=== PATIENT | male | born 1965 | race Caucasian/White ===

== ENCOUNTER 2022-01-12 15:10 | Emergency (ER) | payer OTHER, SELFPAY ==
--- NOTE | 2022-01-12 15:15 | ED.URI ---
HPI - URI/Sore Throat General Chief Complaint: Upper Respiratory Infection Stated Complaint: sore throat Time Seen by Provider: 01/12/22 15:35 Source: patient Mode of arrival: ambulatory Limitations: no limitations History of Present Illness HPI Narrative: Mr. Neal is a 56-year-old male patient presenting to the clinic today with complaints of sore throat and nasal congestion. He reports that this has been going on for approximately 2 weeks. He has taken 2 COVID test today and both of them were negative. He denies any fever or chills. Reports that nasal drainage is going in the back of his throat and his throat pain is worse in the morning. States that the pain was initially just on the right side of his throat but now it is both sides. Also reports he has some bilateral ear discomfort. Related Data Home Medications Medication Instructions Recorded Confirmed aspirin 325 mg tablet 325 mg PO DAILY 05/26/19 03/18/21 Allergies Allergy/AdvReac Type Severity Reaction Status Date / Time lisinopril Allergy Unknown Cough Verified 09/05/21 12:03 Penicillins Allergy Unknown Unknown Verified 09/05/21 12:03 Review of Systems Review of Systems: Pertinent positives per HPI. Patient denies any fever, chills, rash, headache, visual changes, dizziness, cough, shortness of breath, chest pain, palpitations, nausea, vomiting, diarrhea, constipation, abdominal pain, or any urinary issues. [facility] Past Medical History Medical History Cervical disc disorder at C6-C7 level with myelopathy COVID-19 virus infection Surgical History Surgical History S/P cervical disc replacement (~03/2019) Family History Family History Father Family history of cardiovascular disease, Onset Age: 78 Malignant neoplasm of prostate Family history of coronary artery disease Social History Social History (Updated 09/05/21 @ 12:03 by JESUS Frances) Smoking status: Former smoker Alcohol intake: current Comments At the time of my signature, I reviewed and agree with the nursing past medical, surgical, social, and family history. There is no relevant family history pertinent to the patient complaint. Exam Narrative: General: Well-developed, obese, in no apparent distress Head: Normocephalic, atraumatic Eyes: Pupils equally round and reactive to light bilaterally, EOM intact, sclera and conjunctive clear, no discharge, lids normal Ears: TMs intact and clear, ear canals clear, no drainage, grossly hearing normal. Nose: Nares patent, clear nasal discharge, mild inflammation, no sinus tenderness. Mouth: Oropharynx without lesions or masses, good dentition, MMM. Oropharynx mildly red postnasal drip Neck: Supple, trachea midline, no enlargement of anterior or posterior cervical nodes, no thyroid masses or goiter palpable. Cardio: Regular rate and rhythm, s1 and s2 normal, no murmur appreciated. Resp: Clear to auscultation bilaterally anteriorly and posteriorly, no rhonchi, rales, wheezing or rubs Course Course Emergency Course: Portions of this record may have been created with voice recognition software. Level of Care: Express Care Visit Vital Signs Vital signs: Vital signs reviewed MDM - URI/Sore Throat MDM Narrative Medical decision making narrative: At the time of visit patient is resting comfortably on the exam table. Strep screen was obtained and was negative in the clinic for strep. I suspect the patient has nasal congestion with postnasal drip and eustachian tube dysfunction. I will send in a prescription for some prednisone to help with the inflammation and dry up the congestion. Supportive measures were discussed with the patient he voiced understanding of discharge instructions and agrees to treatment plan. Differential Diagnosis Diffe
[2022-01-12 15:20] VITALS: BP 169/88; PULSE 74; RESP 16; TEMP 35.8; O2SAT 99
== END 2022-01-12 15:56 | disposition home or self-care (01) ==
PROVIDERS: Emergency Provider Nurse Practitioner Family; PCP Family Medicine
DX: J02.9 Acute pharyngitis, unspecified (principal); R09.82 Postnasal drip; H69.90 Unspecified Eustachian tube disorder, unspecified ear; Z87.891 Personal history of nicotine dependence; M50.023 Cervical disc disorder at C6-C7 level with myelopathy; Z86.16 Personal history of COVID-19
CPT/HCPCS: 87081; 87880; 99213; G0463

== ENCOUNTER 2023-12-21 19:26 | Emergency (ER) | payer OTHER, SELFPAY ==
--- NOTE | ~2023-12-21 | XR_ITS ---
EXAMINATION: XR shoulder LT min 2V DATE: 12/21/2023 19:43 INDICATION: Left shoulder dislocation. TECHNIQUE: 4 views of left shoulder were obtained. COMPARISON: Left humerus radiograph 07/26/2004 FINDINGS: There is a reverse [id number] total left shoulder arthroplasty in near-anatomic alignm ent. No fracture. No periprosthetic lucency to suggest loosening or infection. There is moderate oste oarthritis of acromioclavicular joint. IMPRESSION: 1. Total left shoulder arthroplasty in near-anatomic alignment. Reviewed, dictated and finalized at location E.
--- NOTE | 2023-12-21 19:36 | ED.UPPEXIN ---
HPI - Extremity Injury (Upper) General Chief Complaint: Extremity Injury, Upper Stated Complaint: Disloated Shoulder Source: patient Mode of arrival: ambulatory Limitations: no limitations History of Present Illness HPI narrative: [age] year old male presented for complaint of possible dislocation to the left shoulder today which he was able to 'get it back into place himself.' Pt had reverse total shoulder surgery 6 weeks ago. Patient states he is certain it was dislocated earlier today when he reached out with the left arm to move his grandchild, and felt a pop then shooting pain and decreased range of motion; he was able to reduce it by doing a pendulum exercise and felt it pop into place. Endorses he is back to baseline ROM since then. Denies pain at rest, rates pain 3/10 with movement. States he was advised by his chiropractor to have an xray. Denies temperature change, color change, numbness, tingling or weakness of the extremity presently. Scheduled with surgeon in 3 days. Related Data Home Medications Medication Instructions Recorded Confirmed aspirin 325 mg tablet 325 mg PO DAILY 05/26/19 12/21/23 multivitamin 1 tablet PO DAILY 10/13/22 12/21/23 Allergies Allergy/AdvReac Type Severity Reaction Status Date / Time lisinopril Allergy Unknown Cough Verified 12/21/23 19:56 Penicillins Allergy Unknown Unknown Verified 12/21/23 19:56 Review of Systems Review of Systems: CONSTITUTIONAL: Denies body aches, fever, chills ENT: Denies rhinorrhea, congestion CARDIOVASCULAR: Denies chest pain, palpitations, or edema. RESPIRATORY: Denies cough or dyspnea. SKIN: Denies rash, itching, or wounds. MUSCULOSKELETAL: reports left shoulder pain Denies back pain, or myalgia. NEUROLOGIC: Denies headache, numbness, tingling, or weakness. All systems reviewed & are unremarkable except as noted in HPI and below PMFSH Past Medical History Medical History Cervical disc disorder at C6-C7 level with myelopathy COVID-19 virus infection Torn rotator cuff Left 10/2022 Surgical History Surgical History Knee joint replacement status S/P cervical disc replacement (~03/2019) Family History Family History Father Family history of cardiovascular disease, Onset Age: 78 Malignant neoplasm of prostate Family history of coronary artery disease Social History Social History Smoking status: Former smoker Alcohol intake: current Lack of Transportation: No Lack of Food: Never True Current Housing: I Have Housing Concerned About Future Housing: No Difficulty Paying Gas/Electric Bills: No Difficulty Paying for Meds: No Currently Unemployed: No Education: Master's Degree or Higher Difficulty w/ Childcare or Family Care: No Comments At time of signature, I have reviewed and agree with nursing past medical, surgical, social and family history unless otherwise noted. Please see nursing chart for further information. There is no relevant family history pertinent to the presenting complaint Exam Narrative: GENERAL: Well-appearing, and in no acute distress. CHEST: Speaks in full sentences. No respiratory distress. HEART: Regular rate and rhythm. Normal and equal peripheral pulses. EXTREMITIES: Left arm has normal strength and sensation, decreased but baseline range of motion at shoulder, endorses mild pain with movement. No ecchymosis, No point tenderness. No open wounds, skin tenting, or obvious deformity; alignment normal, pulse palpable and equal bilaterally, skin warm, dry, pink. Capillary refill less than 3 seconds. SKIN: Warm, dry, no rash. NEURO: Alert and oriented x3. PSYCH: Normal mood and affect Course Course Emergency Course: Patient is aware of diagnosis, understa
[2023-12-21 19:44] VITALS: BP 138/88; PULSE 113; RESP 16; TEMP 36.4; O2SAT 99
== END 2023-12-21 20:13 | disposition home or self-care (01) ==
PROVIDERS: Emergency Provider Nurse Practitioner Family; PCP Family Medicine
DX: M25.512 Pain in left shoulder (principal); Z86.16 Personal history of COVID-19
CPT/HCPCS: 73030; 99213; G0463